=== PATIENT | male | born 1950 | race Caucasian/White ===

== ENCOUNTER 2022-07-23 13:27 | Emergency (ER) | payer OTHER, SELFPAY ==
[2022-07-23 13:34] VITALS: BP 158/73; PULSE 65; RESP 18; TEMP 36.3; O2SAT 96; BMI 26.4
--- NOTE | 2022-07-23 13:49 | XRR_ITS ---
PROCEDURE INFORMATION: Exam: XR Chest Exam date and time: 07/23/2022 1:53 PM Age: 72 years old Clinical indication: Dyspnea; Additional info: Dyspnea, h/o copd and chf TECHNIQUE: Imaging protocol: Radiologic exam of the chest. Views: 1 view. COMPARISON: No relevant prior studies available. FINDINGS: Lungs: Small indistinct oval shaped opacities mid lung zones more apparent on the left presumed secondary to subsegmental atelectasis but needs follow-up for confirmation. Remaining lung johnson are clear. Pleural spaces: There is a small right pleural effusion extending into the fissures that may be cardiogenic in nature. Heart/Mediastinum: Heart is enlarged. There is a dual electrode pacemaker projecting within the right atrium and right ventricle. There is pulmonary vascular redistribution indicating elevated central venous pressure. Evidence of previous CABG. Bones/joints: Evidence of prior median sternotomy and ACDF. XR/XR chest 1V portable [id number] IMPRESSION: 1. Cardiomegaly, elevated central venous pressure with small right basilar fluid effusion presumed cardiogenic in nature. 2. Small indistinct oval-shaped nodular densities both mid lung zones probably secondary to subsegmental atelectasis however continued follow-up advised.
--- NOTE | 2022-07-23 13:49 | ECG_ITS ---
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 Measurements Intervals [place] Rate: 65 P: 0 DC: 0 QRS: 117 QRSD: 151 T: -39 QT: 438 QTc: 456 Interpretive Statements ELECTRONIC VENTRICULAR PACEMAKER ABNORMAL RHYTHM ECG No previous ECG available for comparison Electronically Signed On 07-23-2022 16:36:21 [facility] by Kelly Huggins M.D. [id number]
--- NOTE | 2022-07-23 13:51 | W.ED.SOB ---
HPI - SOB/Dyspnea General: Chief Complaint: Shortness of Breath/Dyspnea Stated Complaint: SOB Time Seen by Provider: 07/23/22 13:42 Source: patient and family Mode of arrival: ambulatory Limitations: no limitations History of Present Illness: HPI Narrative: See nursing assessment. Patient with complaints of increasing shortness of breath over the past 2 and half weeks after COPD exacerbation at that time. Patient here visiting family from out of town. Patient reports that he ran out of his diuretic about a week ago after prescription was lost. Patient is also out of his albuterol inhaler and clonidine that he uses as needed. He does not have a nebulizer here with him. He does have a nebulizer in his regular home. He denies any chest pain. He has had cough productive of clear sputum. Denies any fever. Does have increased peripheral edema in his lower extremities. States he has chronic low back pain. Denies any trauma. Past medical history includes COPD, chronic low back pain, coronary disease, atrial fibrillation. Past surgical history includes pacemaker. He states pacemaker replaced last year. History of coronary bypass graft, history of cardiac ablation for his uncontrolled atrial fibrillation. He reports that he quit smoking about 10 years ago. Associated symptoms: Deny abdominal pain, chest pain, extremity pain, fever(s), nausea, palpitations or vomiting Review of Systems Const: Denies: fever(s) or chills Eyes: Denies: change in vision ENMT: Denies: throat pain Card: Denies: chest pain or palpitations Resp: Reports: dyspnea and productive cough (Clear sputum); Denies: wheezing or stridor GI: Denies: abdominal pain, nausea, vomiting or diarrhea : Denies: flank pain or dysuria Musc: Reports: extremity swelling; Denies: neck pain, back pain, extremity pain, joint pain or joint swelling Skin/Breast: Denies: rash, pruritus or erythema Neuro: Denies: headache(s) or numbness in extremities Psych: Denies: anxiety Alexander/Lymph: Denies: enlarged lymph nodes PFS ED Supplemental [facility] Information: Possible history includes COPD, chronic low back pain, coronary disease, atrial fibrillation See surgical history as above. Patient states he uses oxygen at 2 and half liters per minute at baseline. Physical Exam Const: COMMON NORMALS: no acute distress, patient oriented x3, no limitations and well nourished GENERAL APPEARANCE: cooperative HENMT: COMMON NORMALS: normocephalic and atraumatic HEAD & SCALP: normocephalic and atraumatic FACE & SINUS: normal facial exam Eye: COMMON NORMALS: EOMs intact bilaterally Neck/C-Spine: COMMON NORMALS: full ROM, no lymphadenopathy, supple and no meningeal signs GENERAL: Yes normal visual inspection Lymph: LYMPHATIC: no lymphadenopathy noted Chest: COMMONS NORMALS: normal inspection of the chest and normal palpation of entire chest wall CHEST: No Ecchymosis present and No rash Resp: COMMON NORMALS: normal respiratory effort and No retractions EFFORT & INSPECTION: No respiratory distress OTHER: Rare crackles in the bases bilaterally. No wheezing. No tachypnea. Cardio: COMMON NORMALS: regular rate, regular rhythm and Peripheral pulses 2+ throughout RATE: regular rate RHYTHM: regular rhythm PERIPHERAL PULSES: Peripheral pulses 2+ throughout OTHER: 2+ pitting edema lower extremities bilaterally. GI: COMMON NORMALS: Normal to inspection, nondistended, normoactive bowel sounds present and non-tender : COMMON NORMALS: Yes no CVA tenderness BLADDER/KIDNEY EXAM: Yes no CVA tenderness Back/Pelvis: COMMON NORMALS: no CVA tenderness Extremity: COMMON NORMALS: full ROM and capillary refill normal OTHER: Pitting edema lower extremities bilaterally Neuro: COMMON NORMALS: patient oriented x3, CN's II-XII intact bilaterally, no focal motor deficits and no sensory deficits noted MENINGEAL SIGNS: Yes no meningeal signs Psych: COMMON NORMALS: mental status grossly normal and Normal thought process present THOUGHT PROCESS: Normal thought process present Skin: COMMON NORMALS: no rashes or lesions noted and no wounds GENERAL SKIN EXAM: no rashes or lesions noted Course Vital Signs: Vital signs: Vital Signs Temperature 97.4 F L 07/23/22 13:34 Pulse Rate 65 07/23/22 15:05 Respiratory Rate 16 07/23/22 15:05 Blood Pressure 121/66 07/23/22 15:05 Pulse Oximetry 92 07/23/22 15:05 Oxygen Delivery Me thod 07/23/22 15:05 Oxygen Flow Rate 2 07/23/22 13:34 MDM - SOB/Dyspnea Medical Decision Making Congestive heart failure. Chronic COPD, supplemental O2 dependent 1985: Patient diuresed very well with IV Lasix. Patient feels much better. Patient declined admission or observation. He states he is ready go home. Lab Data 07/23/22 14:15 07/23/22 14:15 Labs/Radiology: Radiology Impressions Chest X-Ray 07/23/22 13:49 IMPRESSION: 1. Cardiomegaly, elevated central venous pressure with small right basilar fluid effusion presumed cardiogenic in nature. 2. Small indistinct oval-shaped nodular densities both mid lung zones probably secondary to subsegmental atelectasis however continued follow-up advised. Laboratory Results WBC 9.8 10^3/uL (4.0-10.0) 07/23/22 14:15 RBC 5.44 10^6/uL (4.1-5.3) H 07/23/22 14:15 Hgb 12.5 g/dL (11.7-16.6) 07/23/22 14:15 Hct 44.8 % (42.0-52.0) 07/23/22 14:15 MCV 82.4 fl (80-94) 07/23/22 14:15 MCH 23.0 pg (28.0-34.0) L 07/23/22 14:15 MCHC 27.9 g/dL (30.0-36.0) L 07/23/22 14:15 RDW 19.0 % (12.1-15.1) H 07/23/22 14:15 Plt Count 215 10^3/cmm (130-400) 07/23/22 14:15 MPV 9.7 fL (7.4-10.4) 07/23/22 14:15 Neut % (Auto) 82.7 % 07/23/22 14:15 Lymph % (Auto) 8.6 % 07/23/22 14:15 [place] % (Auto) 6.9 % 07/23/22 14:15 Eos % (Auto) 0.8 % 07/23/22 14:15 Baso % (Auto) 0.7 % 07/23/22 14:15 Neut # (Auto) 8.13 10^3/uL (1.8-7.7) H 07/23/22 14:15 Lymph # (Auto) 0.9 10^3/uL (0.8-4.8) 07/23/22 14:15 [place] # (Auto) 0.7 10^3/uL (0.2-0.9) 07/23/22 14:15 Eos # (Auto) 0.1 10^3/uL (0.0-0.8) 07/23/22 14:15 Baso # (Auto) 0.1 10^3/uL (0.0-0.1) 07/23/22 14:15 Nucleated RBC % (auto) 0 % 07/23/22 14:15 Nucleated RBCs # 0.0 /100WBC 07/23/22 14:15 Sodium 141 mmol/L (136-145) 07/23/22 14:15 Potassium 4.7 mmol/L (3.5-5.1) 07/23/22 14:15 Chloride 106 mmol/L (98-107) 07/23/22 14:15 Carbon Dioxide 27 mmol/L (22-29) 07/23/22 14:15 Anion Gap 12.7 (5-19) 07/23/22 14:15 BUN 15 mg/dL (8-23) 07/23/22 14:15 Creatinine 1.0 mg/dL (0.7-1.2) 07/23/22 14:15 GFR Calculation 73.9 mL/min (90-130) L 07/23/22 14:15 Glucose 105 mg/dL (65-115) 07/23/22 14:15 Calculated Osmolality 293 mOsm/kg (285-295) 07/23/22 14:15 Calcium 8.6 mg/dL (8.5-10.5) 07/23/22 14:15 Troponin T Baseline 25 ng/L (0-15) H 07/23/22 14:15 Troponin T 120 Minute 19.59 ng/L (0-15) H 07/23/22 16:43 Delta Troponin T -5.41 ABS# (0-10) L 07/23/22 16:43 NT-Pro-B Natriuret Pep 1151 pg/mL (0-125) H 07/23/22 14:15 Imaging Data CXR: My impression: Cardiomegaly. Evidence of sternotomy. Calcified nodule to the left lateral mid lung Radiologist's impression: PROCEDURE INFORMATION: Exam: XR Chest Exam date and time: 07/23/2022 1:53 PM Age: 72 years old Clinical indication: Dyspnea; Additional info: Dyspnea, h/o copd and chf TECHNIQUE: Imaging protocol: Radiologic exam of the chest. Views: 1 view. COMPARISON: No relevant prior studies available. FINDINGS: Lungs: Small indistinct oval shaped opacities mid lung zones more apparent on the left presumed secondary to subsegmental atelectasis but needs follow-up for confirmation. Remaining lung johnson are clear. Pleural spaces: There is a small right pleural effusion extending into the fissures that may be cardiogenic in nature. Heart/Mediastinum: Heart is enlarged. There is a dual electrode pacemaker projecting within the right atrium and right ventricle. There is pulmonary vascular redistribution indicating elevated central venous pressure. Evidence of previous CABG. Bones/joints: Evidence of prior median sternotomy and ACDF. XR/XR chest 1V portable [id number] IMPRESSION: 1. Cardiomegaly, elevated central venous pressure with small right basilar fluid effusion presumed cardiogenic in nature. 2. Small indistinct oval-shaped nodular densities both mid lung zones probably secondary to subsegmental atelectasis however continued follow-up advised. ? Dictated By: Castillo Julian MD Signed By: Castillo Julian MD Signed Date/Time: 07/23/22 1421 EKG Data EKG 1: I personally reviewed and interpreted this EKG as follows: EKG Interpretation Date: 07/23/22 EKG interpretation time: 14:00 Prior EKG tracings: not available for review Interpretation: Impression electronic ventricular paced rhythm. Left bundle branch block. Nonspecific ST-T changes. Right axis. Discharge Plan Discharge Patient Disposition: Home Clinical Impression: Congestive heart failure Qualifiers: Heart failure type: diastolic Heart failure chronicity: acute on chronic Qualified Code(s): I50.33 - Acute on chronic diastolic (congestive) heart failure Condition: Stable Prescriptions: New bumetanide 1 mg tablet 1 mg PO DAILY Qty: 30 1RF ProAir HFA 90 mcg/actuation HFA aerosol inhaler 2 inh inhalation Q6H PRN (Reason: shortness of breath or wheezing) Qty: 8.5 2RF Rx Instructions: use as directed clonidine HCl 0.1 mg tablet 0.1 mg PO Q8H PRN (Reason: high blood pressure) Qty: 30 1RF No Action multivitamin Tablet 1 tab PO DAILY metformin 500 mg tablet 500 mg PO DAILY atorvastatin 20 mg Tablet 20 mg PO BEDTIME potassium chloride 10 mEq Tablet Extended Release 20 meq PO DAILY hydrocodone-acetaminophen 10-325 mg tablet 1 tab PO Q8H PRN (Reason: Pain) aspirin 81 mg tablet,delayed release (DR/EC) 81 mg PO DAILY amlodipine 10 mg Tablet 10 mg PO DAILY lidocaine 5 % Adhesive Patch,Medicated 1 patch TOPICAL DAILY Rx Instructions: leave on most painful area for up to 12 hrs nitroglycerin 0.4 mg Tablet, Sublingual 0.4 mg SUBLINGUAL Q5M PRN (Reason: Chest Pain) Rx Instructions: do not exceed 3 doses per episode bumetanide 1 mg Tablet 1 mg PO DAILY ProAir HFA 90 mcg/actuation HFA aerosol inhaler 2 puff INHALATION Q4H PRN (Reason: Shortness Of Breath) losartan 100 mg Tablet 100 mg PO DAILY albuterol sulfate 5 mg/mL solution for nebulization 5 mg inhalation Q6H PRN (Reason: Shortness Of Breath) atenolol 50 mg Tablet 50 mg PO DAILY Co Q-10 100 mg capsule 100 mg PO DAILY amiodarone 100 mg Tablet 100 mg PO DAILY Lyrica 75 mg capsule 75 mg PO TID pregabalin 100 mg Capsule 100 mg PO TID Brovana 15 mcg/2 mL Solution For Nebulization 2 ml INHALATION BID Voltaren Arthritis Pain 1 % gel 1 ea TOPICAL BID PRN (Reason: Pain) Vitamin D3 50 mcg (2,000 unit) capsule 50 mcg PO DAILY vitamin E (dl, acetate) 180 mg (400 unit) capsule 180 mg PO DAILY clonidine HCl 0.1 mg Tablet Extended Release 12 Hr 1 mg PO DAILY krill oil 500 mg capsule 500 mg PO DAILY testosterone 20.25 mg/1.25 gram (1.62 %) Gel In Metered-Dose Pump 1 pump TOPICAL DAILY Rx Instructions: apply 1 pump amount over max area of ONE upper arm and shoulder Eliquis 5 mg tablet 5 mg PO BID naloxone 4 mg/actuation [place],Non-Aerosol 4 mg INTRANASAL Q3M PRN (Reason: Opioid Overdose) Rx Instructions: spray 1 dose into ONE nostril; alternate nostrils w each dose until help arrives Discharge Orders: Discharge ED (Routine); Ordered 07/23/22 Ordered By: Alexy Mendes Discharge Diet: Low Salt Discharge Activity: Increase activity as tolerated Patient Instructions: Heart Failure (ED), Pulmonary Edema (ED), COPD (Chronic Obstructive Pulmonary Disease) (ED) Activity Restrictions/Additional Instructions: Take medications as prescribed. If you become short of breath and feel like you are fluid overloaded, he may take an extra Bumex for the day. Take other medications as prescribed. Avoid any added salt or caffeine. Continue your home potassium supplement. Return if symptoms worsen. Coding Level of Care Code ED Flight Manager for Keith Fwd History Comprehensive Exam Comprehensive Medical Decision Making High Complexity
[2022-07-23 14:26] LABS: Basophils # 0.1 10^3/uL (0.0-0.1); Basophils % 0.7 %; Eosinophils # 0.1 10^3/uL (0.0-0.8); Eosinophils % 0.8 %; Hematocrit 44.8 % (42.0-52.0); Hemoglobin 12.5 g/dL (11.7-16.6); Lymphocytes # 0.9 10^3/uL (0.8-4.8); Lymphocytes % 8.6 %; Mean Corpuscular HGB Conc 27.9 g/dL (30.0-36.0); Mean Corpuscular Volume 82.4 fl (80-94); Mean Platelet Volume 9.7 fL (7.4-10.4); Monocytes # 0.7 10^3/uL (0.2-0.9); Monocytes % 6.9 %; Neutrophils # 8.13 10^3/uL (1.8-7.7); Neutrophils % 82.7 %; Nucleated Red Blood Cells % 0 %; Platelet Count 215 10^3/cmm (130-400); Red Blood Count 5.44 10^6/uL (4.1-5.3); White Blood Count 9.8 10^3/uL (4.0-10.0)
[2022-07-23 14:50] LABS: Anion Gap 12.7 (5-19); Blood Urea Nitrogen 15 mg/dL (8-23); Calcium 8.6 mg/dL (8.5-10.5); Carbon Dioxide 27 mmol/L (22-29); Chloride 106 mmol/L (98-107); Glomerular Filtration Rate 73.9 mL/min (90-130); Glucose 105 mg/dL (65-115); NT Pro B Type Natriuretic Pept 1151 pg/mL (0-125); Osmolality Calculated 293 mOsm/kg (285-295); Potassium 4.7 mmol/L (3.5-5.1); Sodium 141 mmol/L (136-145); Troponin(5th) Baseline 25 ng/L (0-15)
[2022-07-23 15:05] VITALS: BP 121/66; PULSE 65; RESP 16; O2SAT 92
[2022-07-23] MEDS: FUROsemide 10 mg/mL SDV 4mL 40 MG IVP (15:39)
[2022-07-23 17:28] LABS: Troponin 5 2HR 19.59 ng/L (0-15)
[2022-07-23 17:31] LABS: Troponin 5 2HR Delta -5.41 ABS# (0-10)
== END 2022-07-23 17:55 | disposition home or self-care (01) ==
PROVIDERS: Emergency Provider Family Medicine
DX: I50.33 Acute on chronic diastolic (congestive) heart failure (principal); Z79.01 Long term (current) use of anticoagulants; Z79.82 Long term (current) use of aspirin; Z79.84 Long term (current) use of oral hypoglycemic drugs; J44.9 Chronic obstructive pulmonary disease, unspecified; Z99.81 Dependence on supplemental oxygen
CPT/HCPCS: 36415; 71045; 80048; 83880; 84484; 85025; 93005; 96374; 99285; J1940